=== PATIENT | male | born 1995 | race African-American/Black ===

== ENCOUNTER 2019-03-04 16:22 | Emergency (ER) | payer BC, OTHER ==
[~2019-03-04] VITALS: Ht 172.7 cm; Wt 70.0 kg
[2019-03-04] MEDS ORDERED: BACITRACIN 15GM TUBE TOP ONE (17:45)
[2019-03-04] MEDS ORDERED: HYDROCODONE/ACETAMINOPHEN 5/325MG TABLET PO ONE (17:45)
[2019-03-04] MEDS ORDERED: TETANUS, DIPHTHERIA, PERTUSSIS VAC/PF 0.5ML (>7YR OLD) IM ONE (17:45)
[2019-03-04 19:45] VITALS: BP 139/70
== END 2019-03-04 19:46 | disposition home or self-care (01) ==
LOC: ER 16:22
DX: S02.2XXA Fracture of nasal bones, initial encounter for closed fracture (principal); J45.909 Unspecified asthma, uncomplicated; S09.90XA Unspecified injury of head, initial encounter; X58.XXXA Exposure to other specified factors, initial encounter; Y93.89 Activity, other specified; Y92.89 Other specified places as the place of occurrence of the external cause; Y99.8 Other external cause status
CPT/HCPCS: 70486; 90471; 90715; 99284